=== PATIENT | female | born 1985 | race Caucasian/White ===

== ENCOUNTER 2020-09-08 10:03 | Outpatient (REF) | payer MEDICAID, SELFPAY ==
--- NOTE | 2020-09-08 09:45 | PAPFT_PTH ---
PATIENT: Susan Vásquez LOC: [facility] U#:[id number] AGE/SX: 34/F ROOM: RE09/08/[address]: OSMAR Brock : 1985 BED: DIS: 09/08/2020 SPEC #: [id number] RECD: 09/08/20 12:48 STATUS: NADEEN REQ #: [id number] OMAR: 09/08/20 09:[address]: Ayala Wong DEPT: [facility] Cytology RECD BY: Angelica Pop ENTERED: 09/08/20 12:49 SP TYPE: PAPFT OTHR DR: Mary Kirby Tissues: 1 - CX/ENDOCX FOR PAP SMEARS Procedures: PAP THIN PREP/UVM Screening HPV DNA PROBE Comments: [id number]
[2020-09-11 15:11] LABS: Chlamydia Result Negative (Negative); GC Result Negative (Negative)
== END 2020-09-08 10:23 ==
LOC: LBN 10:03
PROVIDERS: PCP Nurse Practitioner; Visit Provider Nurse Practitioner Family
DX: Z11.3 Encounter for screening for infections with a predominantly sexual mode of transmission (principal); Z12.4 Encounter for screening for malignant neoplasm of cervix; Z11.51 Encounter for screening for human papillomavirus (HPV)
CPT/HCPCS: 87491; 87591; 88142; 87624

== ENCOUNTER 2021-03-22 16:40 | Outpatient (REF) | payer MEDICAID, SELFPAY ==
[2021-03-22 18:06] LABS: ALT 32 U/L (14-59); AST 17 U/L (15-37); Albumin 3.6 g/dL (3.4-5.0); Alkaline Phosphatase 107 U/L (46-116); Anion Gap 12.3 mmol/L (3-11); BUN 12 mg/dL (7-18); Bilirubin, Total 0.2 mg/dL (0.2-1.0); CO2 20.7 mmol/L (21.0-32.0); CREATININE 0.9 mg/dL (0.55-1.02); Calcium 8.8 mg/dL (8.5-10.1); Calculated LDL 118 mg/dL (<100); Chloride 106 mmol/L (98-107); Cholesterol 171 mg/dL (<200); Glucose 98 mg/dL (74-106); HDL Cholesterol 36 mg/dL (40-60); Potassium 4.3 mmol/L (3.5-5.1); Sodium 139 mmol/L (136-145); Triglyceride 89 mg/dL (<150)
== END 2021-03-22 16:41 | disposition home or self-care (01) ==
LOC: NCHCN 16:40
PROVIDERS: PCP Nurse Practitioner; Visit Provider Nurse Practitioner
DX: E66.01 Morbid (severe) obesity due to excess calories (principal)
CPT/HCPCS: 80053; 80061

== ENCOUNTER 2021-08-09 02:18 | Outpatient (CLI) | payer MEDICAID, SELFPAY ==
--- NOTE | 2021-08-09 10:00 | DI.MRI_ITS ---
Exam(s) MR LOWER JOINT RT WO EXAM: MR LOWER JOINT RT WO CLINICAL HISTORY: POSTERIOR TIBIAL TENDINITIS, RT, M76.821 TECHNIQUE: Multiplanar multisequence MRI was performed without intravenous contrast. COMPARISON: No exams were available for comparison FINDINGS: SKIN: No evidence of ulcer nor subcutaneous tract. BONES/JOINTS: No evidence of fracture nor bone contusion. Minimal amount of increased fluid in the a nkle noted. The talar dome appears unremarkable. The ankle mortise is maintained. There is no evid ence of para-articular ganglion.There is no evidence of osseous tarsal coalition. LIGAMENTS: The anterior and posterior tibiofibular and calcaneofibular ligaments are intact. The ante rior and posterior talofibular ligaments are intact. The deltoid ligament is intact. SINUS TARSI: There is no effacement of the normal fat signal in this space. Interosseous ligament is intact. There is no evidence of sinus tarsi ganglion cyst. ANTEROLATERAL GUTTER:There is no abnormal signal/abnormal tissue in this space. MUSCULOTENDINOUS STRUCTURES: Achilles tendon: Unremarkable. No evidence of tear nor tendinitis/tendinosis. Plantar fascia: Unremarkable. No evidence of tear, abnormal thickening, nor abnormal nodularity. Anterior Extensor tendons: Unremarkable. Medial Tendons: Posterior Tibialis: There is a very small amount of fluid in the tendon distal to the medial malleolu s. No tear evident. Flexor Digitorum longus: Unremarkable. No tear or tenosynovitis evident. Flexor Hallicus longus: Unremarkable. No tear or tenosynovitis evident. Lateral Tendons: Peroneus longus: Unremarkable. No tear nor tenosynovitis evident. Peroneus brevis:Unremarkable. No tear nor tenosynovitis evident. SOFT TISSUES: Unremarkable. OTHER FINDINGS: None. IMPRESSION: 1. Minimal findings as described above. No evidence of obvious tendon tear nor prominent tenosynovit is. 2. No evidence of stress fracture, bone contusion, nor other significant true osseous signal abnormal ity. 3. Mild amount of increased joint fluid in the tibiotalar-ankle joint, but no evidence of septated pa ra-articular ganglion cyst. No articular cartilage findings. No osteochondral defects. DATA REPOSITORY:
== END 2021-08-09 02:38 ==
PROVIDERS: PCP Nurse Practitioner; Visit Provider Podiatrist Foot & Ankle Surgery
DX: M76.821 Posterior tibial tendinitis, right leg (principal); M25.471 Effusion, right ankle
CPT/HCPCS: 73721

== ENCOUNTER 2022-12-17 15:21 | Outpatient (REF) | payer MEDICAID, SELFPAY ==
[2022-12-17 16:01] LABS: Abs Immature Grans 0.02 10^3/uL (0.0-0.06); Absolute Basophil Count 0.04 10^3/uL (0.0-0.2); Absolute Eosinophil Count 0.16 10^3/uL (0.0-0.7); Absolute Lymphocyte Count 1.86 10^3/uL (1.2-3.4); Absolute Monocyte Count 0.52 10^3/uL (0.1-0.8); Absolute Neutrophil Count 5.13 10^3/uL (1.2-6.7); Basophils % 0.5; Eosinophils % 2.1; HCT 39.8 % (36.0-46.0); HGB 13.1 g/dL (11.2-15.7); Immature Grans % 0.3; Lymphocytes % 24.1; MCH 29.4 pg (27.0-33.0); MCHC 32.9 % (32.0-36.0); MCV 89 fL (80-95); MPV 10.6 fL (8.0-11.0); Monocytes % 6.7; Neutrophils % 66.3; Platelet Count 298 10^3/uL (130-400); RBC 4.45 10^6/uL (3.93-5.22); RDW 13.1 % (11.7-14.6); WBC 7.73 10^3/uL (4.4-10.8)
[2022-12-17 16:58] LABS: Calculated LDL 90 mg/dL (<100); Cholesterol 146 mg/dL (<200); HDL Cholesterol 43 mg/dL (40-60); TSH (W/Ref FT4) 1.12 uIU/mL (0.36-3.74); Triglyceride 69 mg/dL (<150)
[2022-12-17 17:12] LABS: Vitamin D 25 Total 10.6 ng/mL (30-100)
[2022-12-21 11:45] LABS: Methylphenidate 127 ng/mL (Cutoff: 10); Ritalinic Acid 5859 ng/mL (Cutoff: 50)
== END 2022-12-17 15:22 | disposition home or self-care (01) ==
LOC: NCHCN 15:21
PROVIDERS: PCP Nurse Practitioner; Visit Provider Registered Nurse
DX: F31.89 Other bipolar disorder (principal); Z79.899 Other long term (current) drug therapy; Z51.81 Encounter for therapeutic drug level monitoring
CPT/HCPCS: 80061; 80360; 82306; 84443; 85025

== ENCOUNTER 2024-02-02 16:06 | Outpatient (REF) | payer MEDICAID, SELFPAY ==
[2024-02-02 15:54] LABS: HCT 39.8 % (36.0-46.0); HGB 12.9 g/dL (11.2-15.7); MCH 29.2 pg (27.0-33.0); MCHC 32.4 % (32.0-36.0); MCV 90 fL (80-95); MPV 10.3 fL (8.0-11.0); Platelet Count 312 10^3/uL (130-400); RBC 4.42 10^6/uL (3.93-5.22); RDW 13.3 % (11.7-14.6); RDW-SD 44.3 fL; WBC 7.59 10^3/uL (4.4-10.8)
[2024-02-02 16:23] LABS: Hemoglobin A1C 5.6 % (<5.7)
[2024-02-02 17:38] LABS: ALT 28 U/L (14-59); AST 15 U/L (15-37); Albumin 3.5 g/dL (3.4-5.0); Alkaline Phosphatase 107 U/L (46-116); Anion Gap 13.6 mmol/L (3-11); BUN 9 mg/dL (7-18); Bilirubin, Total 0.33 mg/dL (0.2-1.0); CO2 20.4 mmol/L (21.0-32.0); CREATININE 0.9 mg/dL (0.55-1.02); Calcium 9.1 mg/dL (8.5-10.1); Calculated LDL 107 mg/dL (<100); Chloride 107 mmol/L (98-107); Cholesterol 171 mg/dL (<200); Glucose 127 mg/dL (74-106); HDL Cholesterol 38 mg/dL (40-60); Potassium 4.1 mmol/L (3.5-5.1); Sodium 141 mmol/L (136-145); Total Protein 6.9 g/dL (6.4-8.2); Triglyceride 132 mg/dL (<150); Vitamin D 25 Total 10.7 ng/mL (30-100)
== END 2024-02-02 16:07 | disposition home or self-care (01) ==
LOC: NCHCN 16:06
PROVIDERS: PCP Physician Assistant; Visit Provider Physician Assistant
DX: E55.9 Vitamin D deficiency, unspecified (principal); F17.210 Nicotine dependence, cigarettes, uncomplicated; R73.09 Other abnormal glucose; R79.89 Other specified abnormal findings of blood chemistry; E66.01 Morbid (severe) obesity due to excess calories
CPT/HCPCS: 80053; 80061; 82306; 85027; 83036

== ENCOUNTER 2025-05-30 09:21 | Emergency (ER) | payer MEDICAID, SELFPAY ==
[2025-05-30 09:25] VITALS: BP 159/110; PULSE 120; RESP 16; TEMP 37.1; O2SAT 98
[2025-05-30 09:30] VITALS: BP 159/110; PULSE 120; RESP 16; TEMP 37.1; O2SAT 98
[2025-05-30 09:35] VITALS: PULSE 101; RESP 28; O2SAT 99
[2025-05-30 09:40] VITALS: PULSE 107; RESP 23; O2SAT 96
--- NOTE | 2025-05-30 09:44 | ED.GENADUL_ITS ---
Discharge Plan Disposition Patient Disposition: Home Condition: Good Discharge Details Clinical Impression: Gastroenteritis, Bloody emesis Primary Care Provider: Richard Howard ED Provider: Keerthi Blair Home Meds and New Rx's Prescriptions: New ondansetron 4 mg tablet,disintegrating 4 mg PO Q8H PRNQty: 10 0RF Discharge Instructions Instructions: Viral gastroenteritis in adults Additional Instructions: Please call [facility] first thing tomorrow morning to schedule follow-up appointment for reassessment. Further outpatient evaluation may be indicated Your workup today was very reassuring. There is no sign of acute blood loss, your blood counts are unremarkable. There is no abnormality noted on CAT scan. I would like you to continue to rest at home. You may use Tylenol as needed for body aches/discomfort. You may use the Zofran prescribed for severe nausea/vomiting as needed. Return to emergency care if you develop new severe abdominal pain, uncontrollable vomiting, new blood in your vomit, blood in your stool, episodes of passing out, or if you are very worried and need to be rechecked again immediately Referrals: Richard Howard [Primary Care Provider, Medicine] HPI General Date/Time Provider Initiated Documentation: 05/30/25 09:42 . HPI Narrative: Susan is a 39-year-old female who presents to the emergency department today for evaluation of chills, nausea/vomiting, streaks of blood in her emesis, abdominal discomfort, and diarrhea. Reports symptoms started 3 days ago, has been unable to keep any fluids down. SVomiting episodes include streaks of blood, with vomitus varying in color, including red. Unable to consume food due to generalized abdominal pain. Reports tactile fevers, chills, headaches, fatigue, and increased sleepiness. . Diarrhea occurs a few times daily, without blood in stool. Decreased urinary output, no blood in urine. Denies congestion, sore throat, cough, shortness of breath/asthma exacerbation. No known contacts with similar symptoms. No regular alcohol consumption or illicit drug use. PMH significant for asthma. Denies history of acid reflux, gastric ulcers, or abdominal surgeries. PCP [facility]. Related Data Home Medications ?Medication ?Instructions ?Recorded ?Confirmed ondansetron 4 mg disintegrating 4 mg PO Q8H PRN #10 ta bs 05/30/25 tablet Previous Rx's ?Medication ?Instructions ?Recorded ondansetron 4 mg disintegrating 4 mg PO Q8H PRN #10 ta bs 05/30/25 tablet Allergies Allergy/AdvReac Type Severity Reaction Status Date / Time No Known Allergies Allergy Verified 05/30/25 09:30 General Stated Complaint: Abd Prob MAURICE: 3 Exam Const General: cooperative, healthy appearing and anxious Nutritional Appearance: obese Orientation: alert and oriented x3 Resp Effort & Inspection: normal respiratory effort and able to speak in complete sentences Auscultation: clear to auscultation bilaterally Cardio Rate: tachycardic Rhythm: regular rhythm GI Inspection: normal to inspection and large pannus Palpation: soft, no guarding, no masses and tender in the epigastrum Auscultation: normal bowel sounds Skin General skin exam: no rashes or lesions noted Course Vital Signs Vital signs: Vital Signs Temperature 37.1 C 05/30/25 09:25 Pulse 120 H 05/30/25 09:25 Respiratory Rate 16 05/30/25 09:25 Blood Pressure 159/110 H 05/30/25 09:25 Pulse Oximetry 98 05/30/25 09:25 Temperature 37.1 C 05/30/25 09:30 Pulse 120 H 05/30/25 09:30 Respiratory Rate 16 05/30/25 09:30 Blood Pressure 159/110 H 05/30/25 09:30 Pulse Oximetry 98 05/30/25 09:30 Pain Level 10 05/30/25 09:30 Medical Decision Making Initial Assessment: 3-year-old female with nausea, vomiting, diarrhea, and abdominal pain for 3 days. Blood in vomit, fever, chills, headache. No history of acid reflux, ulcers, or abdominal surgeries. Asthma noted. Differential Diagnosis includes but is not not limited to: Maria-Villegas tear, peptic ulcer disease, viral or bacterial gastroenteritis, dehydration, electrolyte imbalance. Labs ordered to rule out acute anemia. ED Course: - IV fluids administered - Antiemetic medication provided I independently interpreted the following tests: CBC reassuring, mild leukocytosis noted with white cell count 11.8. CMP reassuring, mild hyponatremia, sodium 133. Magnesium, lipase unremarkable. UA notable for moderate blood, small bili, 40 ketones and 30 protein, with elevated specific gravity, consistent with dehydration. CT abdomen/pelvis unremarkable, no acute findings. Overall workup today reassuring. Susan was able to sip jake akrina after receiving IV fluids and antiemetics. Etiology most consistent with viral gastroenteritis, though probable Maria-Villegas tear versus peptic ulcer also in consideration due to history of streaks of blood in vomit. Clinical Impression: Gastroenteritis Reviewed discharge instructions with patient, including symptomatic management, importance of follow-up with PCP, and red flags indicating need for return to emergency care Disposition: Follow up with PCP Patient consented to the use of [facility] Imaging Data Radiologic Study: Radiologist's impression: Exam(s) CT ABDOMEN PELVIS WO EXAM: CT ABDOMEN PELVIS WO CLINICAL HISTORY: epigastric pain, +blood in urine ?stone. TECHNIQUE: Imaging Protocol: Axial computed tomography images with coronal and sagittal reformatted images were created and reviewed. COMPARISON: No exams were available for comparison FINDINGS: ABDOMEN: Lung Bases: Normal where visualized. Liver: Normal density. No measurable mass. Gallbladder and biliary tract: No radiodense calculus or biliary ductal dilation. Pancreas: Normal density, no abnormal calcifications or inflammatory process. Spleen: Normal. Kidneys: Normal size, contour and axis.There is a calcification in the left renal cortex. There is no evidence of ureterolithiasis or hydronephrosis. No masses seen. Adrenal glands: No mass is seen. Lymph nodes: Within normal limits. Abdominal Aorta: Abdominal portion non-dilated. PELVIS: Bladder:The urinary bladder is incompletely distended but grossly unremarkable. No bladder stones are seen. Bowel: There are few diverticula seen in the colon, but no evidence of acute diverticulitis. There is no evidence of bowel obstruction or bowel wall thickening. Appendix is unremarkable. Peritoneal cavity: No ascites, collection or mesenteric inflammatory response. No free air. Reproductive organs: Unremarkable as visualized. Bones: Within normal limits. Soft Tissues: Within normal limits. IMPRESSION: 1. There is no evidence of obstructive uropathy. 2. Colonic diverticulosis without evidence of acute diverticulitis. 3. There is no acute abdominal or pelvic process. PFSH All Active Problems (Updated 05/30/25 @ 12:45 by Keerthi Hussein) Bloody emesis (Acute) Gastroenteritis (Acute) Family History Self Adopted Social History Smoking/Tobacco Use Status: Never Quit status: considering quitting Smoking risk assessment performed?: Yes Alcohol Intake: never Do you feel safe at home: Yes Do you feel safe in your relationship?: Yes History History 3 Para 2 Hx # Term Pregnancies Multiple births Hx # Pregnancies Ectopic pregnancies AB induced 1 Hx Number of Living Children AB spontaneous
[2025-05-30 10:28] LABS: ALT 29 U/L (14-59); AST 19 U/L (15-37); Albumin 3.9 g/dL (3.4-5.0); Alkaline Phosphatase 101 U/L (46-116); Anion Gap 12.8 mmol/L (3-11); BUN 7 mg/dL (7-18); Bilirubin, Total 0.6 mg/dL (0.2-1.0); CO2 18.2 mmol/L (21.0-32.0); Calcium 9.2 mg/dL (8.5-10.1); Chloride 102 mmol/L (98-107); Estimated GFR 82.88 (mL/min/1.73m2); Glucose 112 mg/dL (74-106); Magnesium 2.0 mg/dL (1.8-2.4); Potassium 3.8 mmol/L (3.5-5.1); Sodium 133 mmol/L (136-145); Total Protein 8.6 g/dL (6.4-8.2)
[2025-05-30 10:30] LABS: Abs Immature Grans 0.05 10^3/uL (0.0-0.06); HCT 46.1 % (36.0-46.0); HGB 15.3 g/dL (11.2-15.7); Immature Grans % 0.4 %; MCH 29.7 pg (27.0-33.0); MCHC 33.2 % (32.0-36.0); MCV 89 fL (80-95); MPV 10.3 fL (8.0-11.0); Platelet Count 337 10^3/uL (130-400); RBC 5.16 10^6/uL (3.93-5.22); RDW 12.7 % (11.7-14.6); RDW-SD 41.7 fL; WBC 11.88 10^3/uL (4.4-10.8)
[2025-05-30 10:30] LABS: Glucose Negative (Negative)
[2025-05-30 10:38] LABS: C & S Indicated? No; WBC 0-2 HPF (0-5)
[2025-05-30 10:43] LABS: INR 1.0 (0.9-1.1); PTT Activated 26.1 sec (20.6-30.2); Prothrombin Time 10.3 sec (9.1-11.1)
[2025-05-30] MEDS: Ondansetron 4 MG/2 ML VIAL IVP (10:47)
[2025-05-30] MEDS: Lactated Ringers 1,000 ML 1000 ML IV (10:48)
[2025-05-30 11:05] VITALS: BP 123/67; PULSE 87; RESP 18; O2SAT 96
[2025-05-30] MEDS: ACETAMINOPHEN 1,000 MG/100 ML BAG 400 MG IVPB (11:35)
[2025-05-30] MEDS: Normal Saline 50 ML (11:35)
[2025-05-30] MEDS: Famotidine 20 MG/2 ML VIAL IVP (11:35)
--- NOTE | 2025-05-30 12:00 | DI.CT_ITS ---
Exam(s) CT ABDOMEN PELVIS WO EXAM: CT ABDOMEN PELVIS WO CLINICAL HISTORY: epigastric pain, +blood in urine ?stone. TECHNIQUE: Imaging Protocol: Axial computed tomography images with coronal and sagittal reformatted images were created and reviewed. COMPARISON: No exams were available for comparison FINDINGS: ABDOMEN: Lung Bases: Normal where visualized. Liver: Normal density. No measurable mass. Gallbladder and biliary tract: No radiodense calculus or biliary ductal dilation. Pancreas: Normal density, no abnormal calcifications or inflammatory process. Spleen: Normal. Kidneys: Normal size, contour and axis.There is a calcification in the left renal cortex. There is no evidence of ureterolithiasis or hydronephrosis. No masses seen. Adrenal glands: No mass is seen. Lymph nodes: Within normal limits. Abdominal Aorta: Abdominal portion non-dilated. PELVIS: Bladder:The urinary bladder is incompletely distended but grossly unremarkable. No bladder stones are seen. Bowel: There are few diverticula seen in the colon, but no evidence of acute diverticulitis. There is no evidence of bowel obstruction or bowel wall thickening. Appendix is unremarkable. Peritoneal cavity: No ascites, collection or mesenteric inflammatory response. No free air. Reproductive organs: Unremarkable as visualized. Bones: Within normal limits. Soft Tissues: Within normal limits. IMPRESSION: 1. There is no evidence of obstructive uropathy. 2. Colonic diverticulosis without evidence of acute diverticulitis. 3. There is no acute abdominal or pelvic process. RADIATION DOSE DELIVERED: 942.12mGy.cm Total DLP DATA REPOSITORY: All CT scans at this facility are submitted to the National Radiology Data Registry (NRDR) Dose Index Registry (DIR) with the [employer] ([employer]). RADIATION OPTIMIZATION: All CT scans at this facility use at least one of these dose optimization techniques: automated exposure control; mA and/or kV adjustment per patient size (includes targeted exams where dose is matched to clinical indication); or iterative reconstruction.
[2025-05-30 12:02] LABS: Lab Add On Test DONE
[2025-05-30 12:17] LABS: Lipase 21 U/L (<78)
[2025-05-30] MEDS: Mylanta Suspension 30 ML CUP PO (13:05)
[2025-05-30 13:10] VITALS: BP 137/72; PULSE 82; RESP 18; O2SAT 99
== END 2025-05-30 13:12 | disposition home or self-care (01) ==
PROVIDERS: Emergency Provider Nurse Practitioner Family; PCP Physician Assistant
DX: K52.9 Noninfective gastroenteritis and colitis, unspecified (principal); K92.0 Hematemesis
CPT/HCPCS: 99284 ×2; 36415; 96374; 96375; 80053; 83690; 96361; 74176; 81003; 81015; 83735; 85025; 85610; 85730; J0131; J2405